=== PATIENT | male | born 1955 | race Caucasian/White ===

== ENCOUNTER 2016-11-22 20:58 | Emergency (ER) | payer SELFPAY ==
[~2016-11-22] VITALS: Ht 170.2 cm; Wt 74.8 kg
[~2016-11-22 20:58] MED LIST: ASPI325T2 PO; IBUP-1481 PO; LISI10TA59 PO; SULF1TAB48 PO
[2016-11-22 22:45] VITALS: BP 170/100
== END 2016-11-22 22:46 | disposition home or self-care (01) ==
LOC: ER 20:58
DX: L03.116 Cellulitis of left lower limb (principal); I10 Essential (primary) hypertension; I82.509 Chronic embolism and thrombosis of unspecified deep veins of unspecified lower extremity; F17.200 Nicotine dependence, unspecified, uncomplicated
CPT/HCPCS: 93971; 99284; A4606; Z7610

== ENCOUNTER 2020-03-03 20:51 | Emergency (ER) | payer OTHER ==
[~2020-03-03] VITALS: Ht 172.7 cm; Wt 72.6 kg
[~2020-03-03 20:51] MED LIST changes: +ASPI-992 PO; -ASPI325T2 PO; -IBUP-1481 PO; +IBUP-1953 PO; +LISI-605 PO; -LISI10TA59 PO
--- NOTE | 2020-03-03 21:34 | NUR ---
BIBS FOR C/O RLE PAIN AND R ANKLE SWELLING X 1 WEEK TO ER BED 2 AWAITING MD SALINAS
--- NOTE | 2020-03-03 21:45 | NUR ---
TECH AT BEDSIDE FOR XRAY
--- NOTE | 2020-03-03 22:03 | NUR ---
TECH AT BEDSIDE FOR DUPLEX
[2020-03-03] MEDS ORDERED: SULFAMETH/TRIMETH 800/160 MG 1 UDTAB TABLET PO ONE (22:30)
[2020-03-03] MEDS ORDERED: SULFAMETH/TRIMETH 800/160 MG 1 UDTAB TABLET ONE (22:32)
--- NOTE | 2020-03-03 22:37 | NUR ---
Patient discharged to home in stable condition. Written and verbal after care instructions given. Patient verbalizes understanding of instruction.
[2020-03-03 22:38] VITALS: BP 171/100
== END 2020-03-03 22:39 | disposition home or self-care (01) ==
LOC: ER 20:54
DX: L03.115 Cellulitis of right lower limb (principal); I10 Essential (primary) hypertension; Z86.73 Personal history of transient ischemic attack (TIA), and cerebral infarction without residual deficits; Z60.2 Problems related to living alone; Z79.82 Long term (current) use of aspirin; Z79.899 Other long term (current) drug therapy
CPT/HCPCS: 73590-TC; 73610-TC; 93971-TC

== ENCOUNTER 2020-03-11 11:39 | Inpatient (IN) | payer OTHER ==
[~2020-03-11] VITALS: Ht 170.2 cm; Wt 68.0 kg
--- NOTE | 2020-03-11 11:55 | NUR ---
PT BIB FRIEND. PRESENTS W/ RLE PAIN, REDNESS AND SWELLING. PT STATES WAS SEEN HERE 10 DAYS AGO FOR A CELLULITIS AND IS ON ANTIBIOTICS. PT IS CONCERNED ABOUT "BLOOD CLOTS." DENIES DIFFICULTY OR SHORTNESS OF BREATH. STABLE VITALS. AWAITING MD SALINAS.
--- NOTE | 2020-03-11 12:10 | NUR ---
DR POWELL AT BEDSIDE FOR EVAL.
--- NOTE | 2020-03-11 12:48 | NUR ---
U/S TECH AT BEDSIDE FOR RLE DUPLEX ULTRASOUND.
[2020-03-11] MEDS ORDERED: CEPH500C2 MT (13:30)
[2020-03-11] MEDS ORDERED: ONDANSETRON HCL/PF 4 MG/2 ML VIAL IVP PRN (14:00)
[2020-03-11] MEDS ORDERED: ZOLPIDEM TARTRATE 5 MG TABLET PO PRN (14:00)
[2020-03-11] MEDS ORDERED: ACETAMINOPHEN 325 MG TABLET PO PRN (14:00)
[2020-03-11] MEDS ORDERED: MAG HYDROX/AL HYDROX/SIMETH 30 ML UDC PO PRN (14:00)
--- NOTE | 2020-03-11 14:28 | NUR ---
NURSING SUP GAVE M/S BED 207-2.
--- NOTE | 2020-03-11 14:44 | NUR ---
REPORT GIVEN TO ANN-MARIE HONG. PT AWAITING MD SALINAS.
--- NOTE | 2020-03-11 15:40 | NUR ---
RN ADMITTING NOTES ADMITTED A 64 YEARS OLD, M TO UNIT VIA GURNEY ACCOMPANIED BY E.R STAFF. A/O X4, ABLE TO MAKE NEEDS KNOWN. NO COMPLAIN OF PAIN OR DISCOMFORT AT THIS TIME. PATIENT ORIENTED TO ROOM, STAFF AND UNIT. V/S TAKEN AND RECORDED. REFUSED PHYSICAL ASSESSMENT AND PICTURES AT THIS TIME. IV ACCESS ON R HAND #20, SL. PATENT AND INTACT. SAFETY MEASURES INITIATED, BED PLACED IN LOWEST LOCKED POSITION WITH SIDE RAILS UP X2. CALL LIGHT PLACED WITHIN EASY. WILL CONTINUE TO MONITOR.
[2020-03-11] MEDS ORDERED: FEE PK DOSING 1 MIN EA MC ONE (15:59)
[2020-03-11 16:00] VITALS: BP 167/97
[2020-03-11] MEDS ORDERED: VANCOMYCIN 1 GM in IV D5W 250 ML IV ONE (16:00)
[2020-03-11] MEDS: APIXABAN 5 MG TABLET PO SCH (16:19)
[2020-03-11] MEDS ORDERED: LISI10TA5 PO (16:54)
[2020-03-11 17:05] LABS: CALCIUM, SERUM 8.8 mg/dL (8.5-10.1); CREATININE 1.4 mg/dL (0.6-1.3); POTASSIUM 3.8 mmol/L (3.5-5.1)
[2020-03-11] MEDS: hydrALAZINE HCL IV 20 MG VIAL IV PRN (17:47)
[2020-03-11] MEDS: HYDROCODONE/APAP 5/325MG 1 EACH TABLET PO PRN ×2 (18:28→23:15)
--- NOTE | 2020-03-11 18:40 | NUR ---
RN NOTES PATIENT IN BED RESTING COMFORTABLY IN MODERATE HIGH BACK REST. A/O X4. ABLE TO MAKE NEEDS KNOWN. IV ACCESS ON RIGHT HAND #20, SL. PATENT AND INTACT. SAFETY MEASURES IN PLACE, BED PLACED IN LOWEST LOCKED POSITION WITH SIDE RAILS UP X2. CALL LIGHT PLACED WITHIN EASY. WILL ENDORSE TO OUTBOUND SALES SPECIALIST NURSE FOR NAYE.
--- NOTE | 2020-03-11 19:00 | NUR ---
RN OPENING NOTES Received patient A/O x4, awake on bed resting. With complaints of R leg pain, managed with PRN medication as ordered. Patient denies any other concerns at this time. Kept on bed comfortably. On fall precautions. Will continue to monitor accordingly.
[2020-03-11 20:00] VITALS: BP 146/81
[2020-03-11 20:08] VITALS: BP 146/81
[2020-03-11] MEDS: METOPROLOL TARTRATE 25 MG TABLET PO SCH (21:22)
[2020-03-12] MEDS: VANCOMYCIN 0.75 GM in IV D5W 250 ML IV SCH ×2 (03:08→16:21)
--- NOTE | 2020-03-12 06:38 | NUR ---
RN CLOSING NOTES Patient on bed asleep, resting comfortably. Medicated for pain, noted effective. All nursing needs attended, due meds given as ordered. No new complaints made. Kept on bed clean, dry and comfortable. On fall precautions. Call light within easy reach at all times. Endorsed.
--- NOTE | 2020-03-12 07:39 | NUR ---
rn notes patient received on room air, no sob noted, patient denies pain at this time. r hand 20 SL. Plan is to keep SBP < 140. bed at the lowest setting, call light within reach, side rails up x2.
[2020-03-12 08:00] VITALS: BP 150/58
[2020-03-12 08:04] LABS: CALCIUM, SERUM 9.9 mg/dL (8.5-10.1); CREATININE 1.1 mg/dL (0.6-1.3); MAGNESIUM 2.1 mg/dL (1.8-2.4); POTASSIUM 4.1 mmol/L (3.5-5.1)
[2020-03-12 08:05] LABS: BASOPHILS # (AUTO) 0.1 /CMM (0.0-0.2); BASOPHILS % (AUTO) 0.9 % (0.0-2.0); EOSINOPHILS % (AUTO) 1.1 % (0.0-6.0); HEMATOCRIT 31 % (39-51); HEMOGLOBIN 9.3 g/dL (13.5-17.5); LYMPHOCYTES # (AUTO) 2.6 /CMM (0.8-4.8); LYMPHOCYTES % (AUTO) 30.8 % (20.0-44.0); MEAN CORPUSCULAR HGB CONC 30 g/dl (31.0-36.0); MEAN CORPUSCULAR VOLUME 59 fL (80-96); MONOCYTES # (AUTO) 0.6 /CMM (0.1-1.30); MONOCYTES % (AUTO) 7.1 % (2.0-12.0); NEUTROPHILS % (AUTO) 60.1 % (43.0-81.0); PLATELET COUNT (AUTO) 613 /CMM (150-450); RED BLOOD CELL COUNT(AUTO) 5.27 MIL/uL (4.5-6.0); WHITE BLOOD COUNT (AUTO) 8.4 K/uL (4.3-11.0)
[2020-03-12] MEDS: APIXABAN 5 MG TABLET PO SCH ×2 (08:19→16:19)
[2020-03-12] MEDS: METOPROLOL TARTRATE 25 MG TABLET PO SCH ×2 (08:19→21:14)
[2020-03-12 09:33] LABS: EOSINOPHILS % (MANUAL) 2 % (0-4); LYMPHOCYTES % (MANUAL) 20 % (16-48); MONOCYTES % (MANUAL) 7 % (0-11.0); NEUTROPHILS % (MANUAL) 71 (42-76)
[2020-03-12 16:00] VITALS: BP 158/74
[2020-03-12] MEDS: HYDROCODONE/APAP 5/325MG 1 EACH TABLET PO PRN (16:21)
[2020-03-12 17:52] LABS: APPEARANCE,URINE CLEAR (CLEAR); BILIRUBIN,URINE NEGATIVE (NEGATIVE); BLOOD, URINE NEGATIVE Ery/uL (NEGATIVE); COLOR,URINE YELLOW (YELLOW); KETONES,URINE NEGATIVE (NEGATIVE); LEUKOCYTE ESTERASE ,URINE NEGATIVE (NEGATIVE); NITRITE, URINE NEGATIVE (NEGATIVE); PH,URINE 7.5 (5.0-8.0); PROTEIN,URINE NEGATIVE (NEGATIVE); UGLUCOSE NEGATIVE (NEGATIVE); UROBILINOGEN,URINE 0.2 EU/dL (0.2)
[2020-03-12 17:56] LABS: EOSINOPHIL,URINE None Seen
[2020-03-12 18:09] LABS: CREATININE, URINE 91.3 MG/DL (30.0-125.0); URINE TOTAL PROTEIN 25.3 mg/dL (0-11.9)
--- NOTE | 2020-03-12 18:13 | NUR ---
rn notes patient remains on room air, no sob noted, a/o x4 and denies pain at this time. r hand 20 present. keep sbp <140 is the plan. dc planning in the AM, or once patient is medically stable. bed at the lowest setting, call light within reach, side rails up x2.
[2020-03-12 20:00] VITALS: BP 155/89
[2020-03-12 20:27] LABS: OCCULT BLOOD STOOL NEGATIVE (NEGATIVE)
[2020-03-13] MEDS: VANCOMYCIN 0.75 GM in IV D5W 250 ML IV SCH (04:25)
--- NOTE | 2020-03-13 06:30 | NUR ---
MS RN NOTES AWAKE & RESPONSIVE. NOT IN ANY DISTRESS. NO SOB NOTED. DENIES ANY PAIN OR DISCOMFORT AT THIS TIME. WITH IV-HL PATENT & INTACT. MONITORED ACCORDINGLY. CALL LIGHT WITHIN REACH. BED IN LOWEST POSITION. SR UP X 2 FOR SAFETY. WILL ENDORSE TO NEXT SHIFT.
--- NOTE | 2020-03-13 06:54 | NUR ---
MS RN NOTES MOLDED FRAMES ASSEMBLER HAVING A HARD TIME DRAWING BLOOD AT THIS TIME. WILL COME BACK LATER FOR BLOOD DRAW.
--- NOTE | 2020-03-13 07:20 | NUR ---
rn notes patient received on room air, no sob noted, denies pain at this time. bed at the lowest setting, call light within reach, side rails up x2.
[2020-03-13 08:00] VITALS: BP 183/96
[2020-03-13] MEDS: METOPROLOL TARTRATE 25 MG TABLET PO SCH (08:02)
[2020-03-13] MEDS: APIXABAN 5 MG TABLET PO SCH (08:03)
[2020-03-13 08:04] VITALS: BP 183/96
[2020-03-13] MEDS: hydrALAZINE HCL IV 20 MG VIAL IV PRN (08:04)
[2020-03-13] MEDS ORDERED: AMLO5TAB4 PO (09:49)
[2020-03-13] MEDS ORDERED: LEVO500T2 PO (09:49)
[2020-03-13] MEDS ORDERED: METO25TA6 PO (09:49)
[2020-03-13] MEDS ORDERED: APIX5TAB PO (09:49)
[2020-03-13] MEDS ORDERED: AMLODIPINE BESYLATE 5 MG TABLET PO SCH (10:00)
--- NOTE | 2020-03-13 11:06 | NUR ---
rn notes patient dc at this time, IV line removed, minimal bleeding noted. patient has all belongings and states that nothing is missing. No further questions with the discharge process, has the dc paper on hand. prescription with the patient and knows how to get them. belongings list signed. to be picked up by his friend to go home.
[2020-03-13] MEDS ORDERED: VANCOMYCIN 1 GM in IV D5W 250 ML IV SCH (14:00)
[2020-03-13] MEDS ORDERED: METOPROLOL TARTRATE 25 MG TABLET PO SCH (21:00)
[2020-03-18] MEDS ORDERED: APIXABAN 5 MG TABLET PO SCH (17:00)
== END 2020-03-13 11:10 | disposition home or self-care (01) | DRG 197 ==
LOC: ER 11:41 → MEDSG2 15:12
PROVIDERS: ADMIT Nurse Practitioner Acute Care; ATTEND Nurse Practitioner Acute Care
DX: I82.411 Acute embolism and thrombosis of right femoral vein (principal); N17.0 Acute kidney failure with tubular necrosis; L03.115 Cellulitis of right lower limb; E87.1 Hypo-osmolality and hyponatremia; I16.0 Hypertensive urgency; R73.03 Prediabetes; Z79.82 Long term (current) use of aspirin; Z87.891 Personal history of nicotine dependence; I10 Essential (primary) hypertension; D64.9 Anemia, unspecified; T39.395A Adverse effect of other nonsteroidal anti-inflammatory drugs [NSAID], initial encounter; Y92.009 Unspecified place in unspecified non-institutional (private) residence as the place of occurrence of the external cause; Z86.14 Personal history of Methicillin resistant Staphylococcus aureus infection; Z86.718 Personal history of other venous thrombosis and embolism
CPT/HCPCS: 36415; 80048-TC; 80061-TC; 80202-TC; 81000-TC; 82272-TC; 82570-TC; 83735-TC; 84100-TC; 84155-TC; 84300-TC; 85025-TC; 87081-TC; 93971-TC; G0378; J0360; J3370; J7050; J7060

== ENCOUNTER 2020-11-24 22:27 | Emergency (ER) | payer MEDICARE, OTHER ==
[~2020-11-24] VITALS: Ht 170.2 cm; Wt 72.6 kg
[~2020-11-24 22:27] MED LIST changes: +AMLO5TAB4 PO; +APIX5TAB PO; -IBUP-1953 PO; +LEVO500T2 PO; -LISI-605 PO; +METO25TA6 PO; -SULF1TAB48 PO
[2020-11-24 22:30] VITALS: BP 181/100
[2020-11-24] MEDS ORDERED: CLINDAMYCIN 900 MG/6 ML VIAL ONE (23:18)
[2020-11-24] MEDS ORDERED: CLIN300C12 PO (23:22)
[2020-11-24] MEDS ORDERED: IBUP-1957 PO (23:22)
[2020-11-24] MEDS ORDERED: CLINDAMYCIN 900 MG/6 ML VIAL IM ONE (23:30)
== END 2020-11-24 23:43 | disposition home or self-care (01) ==
LOC: ER 22:29
DX: K04.7 Periapical abscess without sinus (principal); I10 Essential (primary) hypertension; F17.200 Nicotine dependence, unspecified, uncomplicated; Z60.2 Problems related to living alone; Z79.899 Other long term (current) drug therapy; Z79.2 Long term (current) use of antibiotics
CPT/HCPCS: 96372; 99283; J3490

== ENCOUNTER 2022-07-27 17:25 | Emergency (ER) | payer MEDICARE, OTHER ==
[~2022-07-27] VITALS: Ht 170.2 cm; Wt 59.4 kg
[~2022-07-27 17:25] MED LIST changes: +CLIN300C12 PO; +IBUP-1957 PO
--- NOTE | 2022-07-27 18:56 | NUR ---
WOUND CARE DONE AND DRESSING CHANGED ON LEFT FOOT WOUND. PT ADVISED TO SEEK MEDICAL CARE W/ HIS PRIMARY CARE DOCTOR FOR WOUND FOLLOW-UP.
--- NOTE | 2022-07-27 19:07 | NUR ---
Patient discharged to home in stable condition. Written and verbal after care instructions given. Patient verbalizes understanding of instruction.
[2022-07-27 19:16] VITALS: BP 138/80
== END 2022-07-27 19:17 | disposition home or self-care (01) ==
LOC: ER 17:32
DX: L97.329 Non-pressure chronic ulcer of left ankle with unspecified severity (principal); I10 Essential (primary) hypertension; F17.200 Nicotine dependence, unspecified, uncomplicated; Z86.718 Personal history of other venous thrombosis and embolism; Z60.2 Problems related to living alone; Z79.899 Other long term (current) drug therapy

== ENCOUNTER 2022-08-26 19:27 | Emergency (ER) | payer MEDICARE, OTHER ==
--- NOTE | 2022-08-26 20:01 | NUR ---
CALLED FOR TRIAGE. NO ANSWER
--- NOTE | 2022-08-26 21:01 | NUR ---
CALLED FOR TRIAGE. NO ANSWER
== END 2022-08-26 21:02 | disposition left against medical advice (07) ==
LOC: ER 19:30
DX: Z53.21 Procedure and treatment not carried out due to patient leaving prior to being seen by health care provider (principal)

== ENCOUNTER 2024-08-28 04:51 | Inpatient (IN) | payer MEDICARE, OTHER ==
[~2024-08-28] VITALS: Ht 170.2 cm; Wt 68.0 kg
[2024-08-28] VITALS (9 sets, daily range): BP systolic 169–215; BP diastolic 79–112; TEMP 98.1–98.4; O2SAT 96–100
[2024-08-28 07:01] LABS: INR 1.11 (0.91-1.10); PARTIAL THROMBOPLASTIN TIME 30.3 SEC (24.3-34.3); PROTHROMBIN TIME 11.7 SECS (9.2-11.1)
[2024-08-28] MEDS ORDERED: hydrALAZINE HCL IV 20 MG VIAL ONE (07:04)
[2024-08-28] MEDS ORDERED: CEFEPIME 1 GM VIAL ONE (07:04)
[2024-08-28] MEDS ORDERED: VANCOMYCIN 1 GM /D5W 250 ML PB IV ONE (07:05)
[2024-08-28 07:12] LABS: ALANINE AMINOTRANSFERASE 23 U/L (12-78); ALBUMIN 2.6 g/dL (3.4-5.0); ALKALINE PHOSPHATASE 104 U/L (46-116); ASPARTATE AMINOTRANSFERASE 28 U/L (15-37); BILIRUBIN,DIRECT 0.1 mg/dL (0.0-0.2); BILIRUBIN,TOTAL 0.2 mg/dL (0.2-1.0); CALCIUM, SERUM 9.2 mg/dL (8.5-10.1); CARBON DIOXIDE 29 mmol/L (21-32); CHLORIDE 102 mmol/L (98-107); CREATININE 1.2 mg/dL (0.6-1.3); GLUCOSE 130 mg/dL (74-106); POTASSIUM 3.7 mmol/L (3.5-5.1); SODIUM SERUM 136 mmol/L (136-145); TOTAL PROTEIN, SERUM 8.9 g/dL (6.4-8.2); UREA NITROGEN, BLOOD 13 mg/dL (7-18)
[2024-08-28 07:21] LABS: LACTIC ACID 1.2 mmol/L (0.4-2.0)
[2024-08-28] MEDS: CEFEPIME 1 GM in IV D5W 50 ML IV ONE (07:30)
[2024-08-28] MEDS: IV NS 0.9% 1,000 ML BAG IV ONE (07:30)
[2024-08-28 07:33] LABS: BASOPHILS % (AUTO) 0.6 % (0.0-2.0); EOSINOPHILS # (AUTO) 0.1 K/uL (0.0-0.7); EOSINOPHILS % (AUTO) 0.6 % (0.0-6.0); HEMATOCRIT 21 % (39-51); LYMPHOCYTES # (AUTO) 1.6 K/uL (0.8-4.8); LYMPHOCYTES % (AUTO) 18.1 % (20.0-44.0); MEAN CORPUSCULAR HEMOGLOBIN 18 PG (26.0-33.0); MEAN CORPUSCULAR HGB CONC 31 g/dl (31.0-36.0); MEAN CORPUSCULAR VOLUME 59 fL (80-96); MONOCYTES # (AUTO) 0.9 K/uL (0.1-1.30); MONOCYTES % (AUTO) 10.1 % (2.0-12.0); NEUTROPHILS # (AUTO) 6.2 K/uL (1.8-8.9); NEUTROPHILS % (AUTO) 70.6 % (43.0-81.0); PLATELET COUNT (AUTO) 642 K/uL (150-450); RED BLOOD CELL COUNT(AUTO) 3.53 MIL/uL (4.5-6.0); RED CELL DISTRIBUTION WIDTH 18.1 % (11.5-15.0); WHITE BLOOD COUNT (AUTO) 8.8 K/uL (4.3-11.0)
[2024-08-28] MEDS: hydrALAZINE HCL IV 20 MG VIAL IV ONE (07:37)
[2024-08-28 07:46] LABS: HEMOGLOBIN 6.4 g/dL (13.5-17.5)
[2024-08-28] MEDS: VANCOMYCIN 1 GM in IV D5W 250 ML IV ONE (08:00)
[2024-08-28 09:15] LABS: ANISOCYTOSIS 1+; BAND % (MANUAL) 1 % (0.0-5.0); BASOPHILS % (MANUAL) 0 % (0.0-2.0); EOSINOPHILS % (MANUAL) 0 % (0-4); HYPOCHROMASIA 1+; LYMPHOCYTES % (MANUAL) 15 % (16-48); MONOCYTES % (MANUAL) 8 % (0-11.0); NEUTROPHILS % (MANUAL) 76 (42-76); PLATELET ESTIMATE ADEQUATE
[2024-08-28 10:04] LABS: APPEARANCE,URINE CLEAR (CLEAR); BILIRUBIN,URINE NEGATIVE (NEGATIVE); BLOOD, URINE NEGATIVE Ery/uL (NEGATIVE); COLOR,URINE YELLOW (YELLOW); KETONES,URINE NEGATIVE (NEGATIVE); LEUKOCYTE ESTERASE ,URINE NEGATIVE (NEGATIVE); NITRITE, URINE NEGATIVE (NEGATIVE); PH,URINE 6.5 (5.0-8.0); PROTEIN,URINE NEGATIVE (NEGATIVE); UGLUCOSE NEGATIVE (NEGATIVE); UROBILINOGEN,URINE 0.2 EU/dL (0.2)
[2024-08-28] MEDS ORDERED: ONDANSETRON HCL/PF 4 MG/2 ML VIAL IVP PRN (12:00)
[2024-08-28] MEDS ORDERED: METOPROLOL TARTRATE 25 MG TABLET ONE (12:32)
[2024-08-28] MEDS: METOPROLOL TARTRATE 25 MG TABLET PO SCH ×2 (12:37→17:14)
[2024-08-28] MEDS: CEFTRIAXONE 1 G in IV D5W 50 ML IV SCH (12:40)
[2024-08-28] MEDS: LISINOPRIL (20MG) 20 MG TABLET PO SCH (18:17)
[2024-08-28] MEDS: IV D5/0.45 NACL 1,000 ML IV PRN (20:41)
[2024-08-28] MEDS: VANCOMYCIN 750 MG in IV D5W 250 ML IV SCH (20:42)
[2024-08-29] VITALS: BP 177/93; TEMP 98.8; O2SAT 99
[2024-08-29 00:54] VITALS: BP 177/93; TEMP 98.8; O2SAT 99
[2024-08-29 01:00] VITALS: BP 164/84
[2024-08-29] MEDS: hydrALAZINE HCL IV 20 MG VIAL IV PRN (03:36)
[2024-08-29 04:14] VITALS: BP 141/88
[2024-08-29 05:03] VITALS: BP 141/88; TEMP 98.4; O2SAT 97
[2024-08-29 06:57] LABS: BASOPHILS # (AUTO) 0.1 K/uL (0.0-0.2); BASOPHILS % (AUTO) 0.3 % (0.0-2.0); HEMATOCRIT 27 % (39-51); HEMOGLOBIN 8.4 g/dL (13.5-17.5); LYMPHOCYTES # (AUTO) 1.5 K/uL (0.8-4.8); LYMPHOCYTES % (AUTO) 8.7 % (20.0-44.0); MEAN CORPUSCULAR HEMOGLOBIN 20 PG (26.0-33.0); MEAN CORPUSCULAR HGB CONC 31 g/dl (31.0-36.0); MEAN CORPUSCULAR VOLUME 62 fL (80-96); MONOCYTES # (AUTO) 1.8 K/uL (0.1-1.30); MONOCYTES % (AUTO) 10.5 % (2.0-12.0); NEUTROPHILS # (AUTO) 13.6 K/uL (1.8-8.9); NEUTROPHILS % (AUTO) 80.5 % (43.0-81.0); PLATELET COUNT (AUTO) 692 K/uL (150-450); RED BLOOD CELL COUNT(AUTO) 4.34 MIL/uL (4.5-6.0); WHITE BLOOD COUNT (AUTO) 16.8 K/uL (4.3-11.0)
[2024-08-29 07:04] LABS: CALCIUM, SERUM 9.1 mg/dL (8.5-10.1); CREATININE 1.2 mg/dL (0.6-1.3); MAGNESIUM 1.6 mg/dL (1.8-2.4); PHOSPHORUS 1.8 mg/dL (2.5-4.9)
[2024-08-29] MEDS: PANTOPRAZOLE 40 MG VIAL IV SCH (08:54)
[2024-08-29] MEDS: MAGNESIUM OXIDE 400 MG TABLET PO ONE (10:39)
[2024-08-29] MEDS: POTASSIUM CHLORIDE 20 MEQ TAB.PRT.SR PO SCH (10:40)
[2024-08-29] MEDS: K PHOS NEUTRAL 250 MG TABLET PO ONE (15:41)
[2024-08-29 20:00] VITALS: BP 146/82; TEMP 98.2; O2SAT 96
[2024-08-30] VITALS: BP 136/73; TEMP 98.8; O2SAT 98
[2024-08-30 04:00] VITALS: BP 158/79; TEMP 98.2; O2SAT 100; O2SAT 98
[2024-08-30 07:10] LABS: BASOPHILS % (AUTO) 0.1 % (0.0-2.0); EOSINOPHILS % (AUTO) 0.1 % (0.0-6.0); HEMATOCRIT 25 % (39-51); HEMOGLOBIN 7.8 g/dL (13.5-17.5); LYMPHOCYTES # (AUTO) 1.4 K/uL (0.8-4.8); MEAN CORPUSCULAR HEMOGLOBIN 19 PG (26.0-33.0); MEAN CORPUSCULAR HGB CONC 31 g/dl (31.0-36.0); MEAN CORPUSCULAR VOLUME 62 fL (80-96); MONOCYTES # (AUTO) 1.7 K/uL (0.1-1.30); NEUTROPHILS # (AUTO) 11.2 K/uL (1.8-8.9); NEUTROPHILS % (AUTO) 77.8 % (43.0-81.0); PLATELET COUNT (AUTO) 590 K/uL (150-450); RED BLOOD CELL COUNT(AUTO) 4.06 MIL/uL (4.5-6.0); RED CELL DISTRIBUTION WIDTH 20.5 % (11.5-15.0); WHITE BLOOD COUNT (AUTO) 14.4 K/uL (4.3-11.0)
[2024-08-30 07:41] LABS: CALCIUM, SERUM 8.6 mg/dL (8.5-10.1); CREATININE 1.4 mg/dL (0.6-1.3); PHOSPHORUS 2.1 mg/dL (2.5-4.9); POTASSIUM 3.3 mmol/L (3.5-5.1)
[2024-08-30 08:16] LABS: MAGNESIUM 1.8 mg/dL (1.8-2.4)
[2024-08-30] MEDS: PANTOPRAZOLE 40 MG TABLET.DR PO SCH (09:37)
[2024-08-30] MEDS: POTASSIUM CHLORIDE 20 MEQ TAB.PRT.SR PO SCH (10:14)
[2024-08-30 12:45] VITALS: BP 150/79
[2024-08-30] MEDS ORDERED: SULF1TAB48 PO (13:34)
[2024-08-30] MEDS ORDERED: LISI20TA30 PO (13:34)
[2024-08-30] MEDS ORDERED: CLIN300C12 PO (13:34)
[2024-08-30] MEDS ORDERED: METO25TA20 PO (13:34)
[2024-08-30] MEDS ORDERED: K PHOS NEUTRAL 250 MG TABLET PO ONE (15:30)
[2024-08-30] MEDS ORDERED: VANCOMYCIN 500 MG in IV D5W 100ml IV SCH (20:00)
== END 2024-08-30 18:34 | disposition home or self-care (01) | DRG 603 ==
LOC: ER 04:56 → TELE 13:19 → MED 08-30 13:42
PROC: 30233N1 Transfusion of Nonautologous Red Blood Cells into Peripheral Vein, Percutaneous Approach (ICD-10-PCS; principal; 2024-08-28)
DX: L03.116 Cellulitis of left lower limb (principal); E46 Unspecified protein-calorie malnutrition; E87.1 Hypo-osmolality and hyponatremia; Z59.00 Homelessness unspecified; N17.9 Acute kidney failure, unspecified; I16.0 Hypertensive urgency; D75.839 Thrombocytosis, unspecified; D50.9 Iron deficiency anemia, unspecified; D69.6 Thrombocytopenia, unspecified; E87.6 Hypokalemia; E88.09 Other disorders of plasma-protein metabolism, not elsewhere classified; I10 Essential (primary) hypertension; Z86.718 Personal history of other venous thrombosis and embolism; Z87.891 Personal history of nicotine dependence; L85.3 Xerosis cutis; R79.89 Other specified abnormal findings of blood chemistry
CPT/HCPCS: 36415; 70450-TC; 71045-TC; 80048-TC; 80076-TC; 80202-TC; 83605-TC; 83735-TC; 84100-TC; 84484-TC; 85025-TC; 85730-TC; 86850-TC; 87040-TC; 87086-TC; 97112-TC; 97116-TC; 97530-TC; A4223; G0378; J0360; J0692; J0696; J2470; J3370; J3371; J3490; J7050; J7060; P9016